=== PATIENT | male | born 1930 | race Caucasian/White ===

== ENCOUNTER 2020-08-13 13:51 | Inpatient (IN) | payer OTHER, MEDICARE ==
[~2020-08-13] VITALS: Ht 175.3 cm; Wt 124.2 kg
[~2020-08-13 13:51] MED LIST: ASPI81EC PO; ATOR20 PO; BP MED; DIAZ5 PO; FURO40 PO; HYDCHL25 PO; IBUP800 PO; LEVO750 PO; LISHYD2025 PO; MELO7.5 PO; METO25ER PO; OXYACE5T PO; SILSUL1TC TOP; SIME80CH PO; TRAM50 PO; WARF2 PO; [UNRECOGNIZED DRUG - REMARK]
[2020-08-13 14:39] LABS: BASOPHILS ABSOLUTE AUTO 0.07 K/mm3 (0.00-0.23); BASOPHILS PERCENT AUTO 1 % (0-2); EOSINOPHILS ABSOLUTE AUTO 0.17 K/mm3 (0.00-0.68); EOSINOPHILS PERCENT AUTO 2 % (0-6); Hematocrit 42.4 % (37.0-53.0); Hemoglobin 13.6 g/dL (13.5-17.5); IMMATURE GRAN ABSOLUTE AUTO 0.04 K/mm3 (0.00-0.10); IMMATURE GRAN PERCENT AUTO 1 % (0-1); LYMPHOCYTES ABSOLUTE AUTO 1.05 K/mm3 (0.84-5.20); LYMPHOCYTES PERCENT AUTO 15 % (21-46); MONOCYTES ABSOLUTE AUTO 0.53 K/mm3 (0.16-1.47); MONOCYTES PERCENT AUTO 8 % (4-13); Mean Corpuscular HGB 29.7 pg (26.0-34.0); Mean Corpuscular HGB Conc 32.1 g/dL (31.5-36.5); Mean Corpuscular Volume 93 fL (80-100); Mean Platelet Volume 9.8 fL (9.1-12.4); NEUTROPHILS PERCENT AUTO 73 % (41-73); Platelet Count 108 K/mm3 (150-400); RDW Coefficient Variation 14.7 % (11.7-14.2); RDW Standard Deviation 49.8 fL (35.1-46.3); Red Blood Cell Count 4.58 M/mm3 (4.30-5.90); White Blood Cell Count 6.96 K/mm3 (4.00-11.30)
[2020-08-13 14:51] LABS: Albumin, Blood 3.6 g/dL (3.4-5.0); Albumin/Globulin Ratio 0.9 (0.8-1.8); Bilirubin, Total 1.8 mg/dL (0.1-1.0); Bun/Creatinine Ratio 12.2 (12.0-20.0); Calcium, Blood 9.2 mg/dL (8.5-10.1); Creatinine, Blood 1.96 mg/dL (0.60-1.20); Globulin, Blood 3.8 g/dL (2.2-4.0); Potassium, Blood 3.8 mmol/L (3.5-5.5); Total Protein, Blood 7.4 g/dL (6.4-8.2); Troponin I 0.062 ng/mL (0.000-0.040)
[2020-08-13] MEDS ORDERED: Aspir 8181 MG PO (16:11)
[2020-08-13] MEDS ORDERED: TORSE20 PO (16:12)
--- NOTE | 2020-08-14 00:20 | NUR ---
08/13 @2340- PT. REQUESTING TO GO HOME. STATES HE IS READY AND DOES NOT WANT TO BE HERE. THIS NURSE IN ROOM WHEN PT. CALLED DAUGHTER AND ASKED TO BE PICKED UP AT THAT TIME. PER PT. STATED DAUGHTER AGREED AND ON THE WAY TO THE HOSPITAL. CHARGE NURSE ROSITA CASTLE RN MADE AWARE AND DR. VELASQUEZ NOTIFIED. DISCUSSED WITH PT. THE RISKS OF LEAVING AMA, PT. VERBALIZED UNDERSTANDING. AMA FORM SIGNED BY PT. IV CATHETER REMOVED. NO REDNESS OR SWELLING NOTED. DAUGHTER CAME UP TO THE FLOOR, TRANSPORTED PT. VIA WHEELCHAIR OF UNIT. CHARGE ROSITA LOVING NOTIFIED.
--- NOTE | 2020-08-14 00:38 | NUR ---
SHIFT SUMMARY- PT. ARRIVED TO FLOOR FROM ED @192 LAST NIGHT VIA STRETCHER. A&O, WEAK, AND UNSTEADY GAIT. ASSISTED INTO BED BY NURSING STAFF. DAUGHTERS AT THE BEDSIDE. PT. ORIENTED TO ROOM AND CALL LIGHT. PT. SOB AND SATS IN THE 80'S. PLACED ON 2L O2, SATS IMPROVED= 90-92. PT. REFUSING COVID TEST. AWAKE DURING THE NIGHT. STATED WANTED TO GO HOME. CALLED DAUGHTER TO PICK HIM UP. CHARGE ROSITA LOVING AND DR. VELASQUEZ MADE AWARE (SEE NURSE NOTE). IV REMOVED. DAUGHTER ARRIVED TO ROOM AND TRANSPORTED PT. VIA WHEELCHAIR OFF THE FLOOR. PT. D/C @3883.
== END 2020-08-14 00:37 | disposition left against medical advice (07) | DRG 291 ==
LOC: ER 13:51 → MEDS 17:38
PROVIDERS: Emergency Medicine; ADMIT Hospitalist
DX: I13.0 Hypertensive heart and chronic kidney disease with heart failure and stage 1 through stage 4 chronic kidney disease, or unspecified chronic kidney disease (principal); I50.33 Acute on chronic diastolic (congestive) heart failure; N17.9 Acute kidney failure, unspecified; I48.19 Other persistent atrial fibrillation; I24.8 Other forms of acute ischemic heart disease; G47.33 Obstructive sleep apnea (adult) (pediatric); Z87.891 Personal history of nicotine dependence; N18.30 Chronic kidney disease, stage 3 unspecified; E66.9 Obesity, unspecified; Z68.36 Body mass index [BMI] 36.0-36.9, adult
CPT/HCPCS: 71045; 80053; 83880; 84484; 85025; 85379; 93005; 93010; 96374; 99285-25; J1940

== ENCOUNTER 2020-08-24 13:05 | Emergency (ER) | payer OTHER, MEDICARE ==
[~2020-08-24] VITALS: Ht 180.3 cm; Wt 90.7 kg
[~2020-08-24 13:05] MED LIST changes: +Aspir 8181 MG PO; +TORSE20 PO
[2020-08-24] MEDS ORDERED: ATOR20 PO (13:36)
[2020-08-24] MEDS ORDERED: ELIQUIS2.5 MG PO (13:36)
[2020-08-24] MEDS ORDERED: TORSE20 PO (13:37)
[2020-08-24] MEDS ORDERED: METO25ER PO (13:37)
== END 2020-08-24 14:57 | disposition home or self-care (01) ==
LOC: ER 13:05
DX: R79.89 Other specified abnormal findings of blood chemistry (principal); I48.91 Unspecified atrial fibrillation; I13.0 Hypertensive heart and chronic kidney disease with heart failure and stage 1 through stage 4 chronic kidney disease, or unspecified chronic kidney disease; N18.9 Chronic kidney disease, unspecified; I50.9 Heart failure, unspecified; K21.9 Gastro-esophageal reflux disease without esophagitis; Z79.82 Long term (current) use of aspirin; Z79.899 Other long term (current) drug therapy; Z86.711 Personal history of pulmonary embolism
CPT/HCPCS: 36415; 84484; 93005; 93010; 99284-25